=== PATIENT | female | born 1955 | race Caucasian/White ===

== ENCOUNTER 2020-09-22 14:04 | Outpatient (REF) | payer OTHER, SELFPAY ==
--- NOTE | ~2020-09-22 | MM_ITS ---
EXAMINATION: MM SCREENING DIGITAL BREAST TOMOSYNTHESIS, BILATERAL CLINICAL INFORMATION: Screening. Asymptomatic. The lifetime risk of breast cancer based on the Tyrer-Cuzick Model is 3%. COMPARISON: Mammography: 05/06/2019, 02/27/2018, 02/06/2017 TECHNIQUE: Digital breast tomosynthesis is performed in both the craniocaudal and mediolateral oblique views along with computer-aided detection (CAD). Synthesized 2D images are generated from the tomosynthesis. FINDINGS: There are scattered areas of fibroglandular density (ACR BI-RADS breast composition Category b). There are no significant masses, abnormal calcifications, or other abnormalities. Parenchymal pattern is similar to prior studies. There is a small stable nodule posterior central 11:00 left breast with coarse calcification likely degenerating fibroadenoma. Axillary nodes are stable. Skin contours are smooth. MM/MM tomosynthesis screening BI IMPRESSION: No mammographic evidence of malignancy. ASSESSMENT: BI-RADS 2: Benign RECOMMENDATION: Routine annual mammography screening. This patient's information was entered into a reminder system with a target due date for their next mammogram.
== END 2020-09-22 14:05 | disposition home or self-care (01) ==
LOC: HO.MAMMO 14:04
PROVIDERS: PCP Family Medicine; Visit Provider Family Medicine
DX: Z12.31 Encounter for screening mammogram for malignant neoplasm of breast (principal)
CPT/HCPCS: 77063; 77067

== ENCOUNTER 2020-10-22 14:07 | Outpatient (REF) | payer OTHER, SELFPAY ==
--- NOTE | ~2020-10-22 | MM_ITS ---
EXAMINATION: BONE DENSITOMETRY CLINICAL INDICATION: Screening for osteoporosis. COMPARISON: This is the patient's baseline examination. TECHNIQUE: Using a Puridify DXA System (software version: 13.1) manufactured by [employer], dual-energy x-ray absorptiometry was performed of the lumbar spine and left hip. The images are of good technical quality. Summary results are attached. FINDINGS: AP SPINE L1-L4: BMD 1.002 g/cm2, Z-score 0.2, T-score -1.5, osteopenia. LEFT FEMUR, NECK: BMD 0.803 g/cm2, Z-score -0.1, T-score -1.7, osteopenia. LEFT FEMUR, TOTAL: BMD 0.910 g/cm2, Z-score 0.5, T-score -0.8, normal. IDENTIFIED RISK FACTORS: Early menopause, secondary osteoporosis. HISTORY OF FRACTURE: None listed. MEDICATIONS: None listed. MM/XR DEXA axial skeleton IMPRESSION: 1. DIAGNOSIS: Osteopenia based on the lowest T-score value of -1.7 in the femoral neck applying World Health Organization criteria. 2. 10-YEAR FRACTURE RISK PREDICTION, FRAX: Major osteoporotic fracture (clinical spine, forearm, hip or shoulder) 5.3%. Hip fracture 0.7%. 3. Treatment Recommendations: NOF guidelines recommend consideration for treatment in postmenopausal women and men age 50 and older presenting with the following: -A hip or vertebral (clinical or morphometric) fracture. -T-score less than or equal to -2.5 at the femoral neck or spine after appropriate evaluation to exclude secondary causes. -Low bone mass at the hip or spine and a 10-year fracture probability by FRAX of greater than or equal to 3% for hip fracture or greater than or equal to 20% for major osteoporotic fracture based on the [place] adapted WHO algorithm. 4. Other Recommendations: All treatment decisions require clinical judgment and consideration of individual patient factors, including patient preferences, comorbidities, previous drug use, risk factors not captured in the FRAX model (e.g. frailty, falls, vitamin D deficiency, increased bone turnover, interval significant decline in bone density) and possible under or overestimation of fracture risk by FRAX. Additional medical evaluation for secondary cause of low bone mineral density may be appropriate. FUTURE SCAN RECOMMENDATION: People with diagnosed cases of osteoporosis or at high risk for fracture should have regular bone mineral density tests. For patients eligible for Medicare, routine testing is allowed once every 2 years. The testing frequency can be increased to one year for patients who have rapidly progressing disease, those who are receiving or discontinuing medical therapy to restore bone mass, or have additional risk factors.
== END 2020-10-22 14:08 | disposition home or self-care (01) ==
LOC: HO.MAMMO 14:07
PROVIDERS: PCP Family Medicine; Visit Provider Family Medicine
DX: M81.8 Other osteoporosis without current pathological fracture (principal); Z78.0 Asymptomatic menopausal state
CPT/HCPCS: 77080

== ENCOUNTER 2020-12-09 08:22 | Outpatient (REF) | payer OTHER, SELFPAY ==
--- NOTE | ~2020-12-09 | XR_ITS ---
EXAMINATION: XR HAND, LEFT CLINICAL INFORMATION: Left hand pain. COMPARISON: None. TECHNIQUE: PA, lateral, and oblique views of the left hand. FINDINGS: No acute fracture or dislocation. Mild joint space narrowing with tiny marginal osteophytes at the 1st, 3rd, and 4th metacarpophalangeal joints. No osseous erosion. No abnormal soft tissue calcification. 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
== END 2020-12-09 08:23 | disposition home or self-care (01) ==
LOC: HO.HOSX 08:22
PROVIDERS: Visit Provider Orthopaedic Surgery
DX: M79.642 Pain in left hand (principal); M72.0 Palmar fascial fibromatosis [Dupuytren]
CPT/HCPCS: 73130; 99202

== ENCOUNTER 2020-12-17 13:04 | Outpatient (REF) | payer OTHER, SELFPAY ==
--- NOTE | ~2020-12-17 | CT_ITS ---
EXAMINATION: CT HEAD WITHOUT CONTRAST CLINICAL INFORMATION: Head trauma with swelling, mass or lump. COMPARISON: Previous head CT July 2008. TECHNIQUE: Contiguous axial imaging was performed from the skull base to vertex without intravenous administration of contrast. This CT examination was performed using dose optimization techniques as appropriate, variously including the following: *Automated exposure control *Adjustment of mA and/or kV according to patient size (this includes techniques or standardized protocols for targeted exams where dose is matched to indication/reason for exam; i.e. extremities or head) *Use of iterative reconstruction technique DLP: 655 mGy-cm FINDINGS: There is no evidence of acute intracranial hemorrhage or territorial infarction. No abnormal mass effect or midline shift is seen. Barraza to white matter differentiation is well preserved. No extra-axial fluid collections are identified. The ventricles are normal in size. There is no abnormal attenuation within the brain parenchyma. No skull fracture is seen. There are degenerative changes of the right temporomandibular joint. Incidental note is made of a high left jugular bulb. The mastoid air cells and visualized portions of the paranasal sinuses are well aerated. CT/CT head/brain wo con IMPRESSION: No acute findings.
== END 2020-12-17 13:05 | disposition home or self-care (01) ==
LOC: HO.CT 13:04
PROVIDERS: Visit Provider Family Medicine
DX: R22.0 Localized swelling, mass and lump, head (principal); S09.90XD Unspecified injury of head, subsequent encounter; X58.XXXD Exposure to other specified factors, subsequent encounter
CPT/HCPCS: 70450

== ENCOUNTER 2021-09-27 13:46 | Outpatient (REF) | payer OTHER, SELFPAY ==
--- NOTE | ~2021-09-27 | MM_ITS ---
EXAMINATION: MM SCREENING DIGITAL BREAST TOMOSYNTHESIS, BILATERAL CLINICAL INFORMATION: Screening. Asymptomatic. The lifetime risk of breast cancer based on the Tyrer-Cuzick Model is 3.2%. COMPARISON: Mammography: September 22, 2020 and studies dating back to January 02, 2014 TECHNIQUE: Digital breast tomosynthesis is performed in both the craniocaudal and mediolateral oblique views along with computer-aided detection (CAD). Synthesized 2D images are generated from the tomosynthesis. FINDINGS: There are scattered areas of fibroglandular density (ACR BI-RADS breast composition Category b). There are no significant masses, abnormal calcifications, or other abnormalities. MM/MM tomosynthesis screening BI IMPRESSION: There are no significant changes from prior study. ASSESSMENT: BI-RADS 1: Negative RECOMMENDATION: Routine annual mammography screening. This patient's information was entered into a reminder system with a target due date for their next mammogram.
== END 2021-09-27 13:47 | disposition home or self-care (01) ==
LOC: HO.MAMMO 13:46
PROVIDERS: PCP Family Medicine; Visit Provider Family Medicine
DX: Z12.31 Encounter for screening mammogram for malignant neoplasm of breast (principal)
CPT/HCPCS: 77063; 77067

== ENCOUNTER 2022-01-07 12:46 | Outpatient (REF) | payer OTHER, SELFPAY ==
--- NOTE | 2022-01-07 | PFT_ITS ---
Forced vital capacity 76%, FEV1 91%. FEV1/FVC ratio is 91. [id number] 161% and MVV is 95%. Post bronchodilator therapy, there is no significant change. Total lung capacity 72%. Residual volume 64%. Diffusion capacity 115%. CONCLUSION: There is evidence of mild restrictive pulmonary disorder. No obstructive airway disorder. MD KRUPA Bernal/DONATOL / [phone]
--- NOTE | ~2022-01-07 | XR_ITS ---
EXAMINATION: XR CHEST CLINICAL INFORMATION: Wheezing. Essential hypertension. COMPARISON: Chest x-ray November 30, 2015 TECHNIQUE: 2 views of the chest were obtained. FINDINGS: Artifact silhouette is normal in size. The lungs are well aerated. There is no lobar consolidation. No pleural effusion or pneumothorax. Moderate degenerative changes of the spine. XR/XR chest 2V IMPRESSION: Stable examination demonstrating no acute pulmonary pathology.
== END 2022-01-07 12:47 | disposition home or self-care (01) ==
LOC: HO.RESP 12:46
PROVIDERS: PCP Family Medicine; Visit Provider Family Medicine
DX: J45.40 Moderate persistent asthma, uncomplicated (principal); I10 Essential (primary) hypertension
CPT/HCPCS: 71046; 94060; 94727; 94729

== ENCOUNTER 2022-03-03 12:29 | Outpatient (REF) | payer OTHER, SELFPAY ==
--- NOTE | ~2022-03-03 | XR_ITS ---
EXAMINATION: XR SKULL CLINICAL INFORMATION: Injury to head COMPARISON: None TECHNIQUE: 2 views of the skull were obtained. FINDINGS: There is no calvarial abnormality. The paranasal sinuses and mastoid air cells are well-aerated. There is no visible fracture or bony abnormality. XR/XR skull <4V IMPRESSION: Unremarkable skull exam.
== END 2022-03-03 12:30 | disposition home or self-care (01) ==
LOC: HO.XRAY 12:29
PROVIDERS: PCP Family Medicine; Visit Provider Student in an Organized Health Care Education/Training Program
DX: S09.90XA Unspecified injury of head, initial encounter (principal)
CPT/HCPCS: 70250

== ENCOUNTER 2022-10-20 13:40 | Outpatient (REF) | payer OTHER, SELFPAY ==
--- NOTE | ~2022-10-20 | MM_ITS ---
EXAMINATION: MM SCREENING DIGITAL BREAST TOMOSYNTHESIS, BILATERAL CLINICAL INFORMATION: Screening. Asymptomatic. The lifetime risk of breast cancer based on the Tyrer-Cuzick Model is 3%. COMPARISON: Mammography: This study is compared with the prior exams dating back to 2018. TECHNIQUE: Digital breast tomosynthesis is performed in both the craniocaudal and mediolateral oblique views along with computer-aided detection (CAD). Synthesized 2D images are generated from the tomosynthesis. FINDINGS: The breasts are extremely dense, which lowers the sensitivity of mammography (ACR BI-RADS breast composition Category d). There are no significant masses, abnormal calcifications, or other abnormalities. Few, benign-appearing, grouped, unchanged, coarse calcifications are present in the superior aspect of the left breast. MM/MM tomosynthesis screening BI IMPRESSION: No mammographic evidence of malignancy. ASSESSMENT: BI-RADS BI-RADS 2 - Benign Findings RECOMMENDATION: Routine annual mammography screening. 1 year F/U This patient's information was entered into a reminder system with a target due date for their next mammogram.
== END 2022-10-20 13:41 | disposition home or self-care (01) ==
LOC: HO.MAMMO 13:40
PROVIDERS: PCP Family Medicine; Visit Provider Family Medicine
DX: Z12.31 Encounter for screening mammogram for malignant neoplasm of breast (principal)
CPT/HCPCS: 77063; 77067

== ENCOUNTER → 2022-10-20 13:45 | Outpatient (BNV) | payer OTHER, SELFPAY | PROVIDERS: PCP Family Medicine; Visit Provider Radiology Diagnostic Radiology | DX: Z12.31 Encounter for screening mammogram for malignant neoplasm of breast (principal) | CPT/HCPCS: 77063; 77067 ==

== ENCOUNTER 2023-01-17 11:23 | Outpatient (REF) | payer OTHER, SELFPAY ==
--- NOTE | ~2023-01-17 | XR_ITS ---
EXAMINATION: XR FOOT, LEFT CLINICAL INFORMATION: Foot pain history of fracture COMPARISON: No prior imaging available at the time of dictation. TECHNIQUE: AP, lateral, and oblique views of the left foot. FINDINGS: No acute fracture or dislocation. Mild degenerative changes of the foot with degenerative spurring of the dorsal midfoot, plantar calcaneal spurring and Achilles tendon enthesopathy. Coarse calcifications along the course of the Achilles tendon may reflect sequelae of prior trauma. Small tibiotalar joint effusion. XR/XR foot LT min 3V IMPRESSION: 1. Mild degenerative changes of the foot. Coarse calcifications along the course of the Achilles tendon may reflect sequelae of prior trauma. 2. Small tibiotalar joint effusion.
--- NOTE | ~2023-01-17 | XR_ITS ---
EXAMINATION: XR KNEE, LEFT CLINICAL INFORMATION: Reason for Exam PAIN COMPARISON: Knee radiographs 05/14/2019 TECHNIQUE: 4 views of the knee FINDINGS: No acute fracture or dislocation. Mild degenerative changes of the knee with borderline loss of medial compartment joint space, spurring of the tibial spines, small medial compartment osteophytes and quadriceps tendon enthesopathy slightly progressed from prior. No joint effusion. Soft tissues are unremarkable. XR/XR knee LT 4V IMPRESSION: * No acute osseous abnormality. * Mild degenerative changes of the knee slightly progressed from prior.
[2023-01-17 13:21] LABS: Cholesterol 205 mg/dL (<200); HDL Cholesterol 50 mg/dL (>40); LDL Cholesterol Calculated 140 mg/dL (<100); Triglycerides 78 mg/dL (<150)
[2023-01-17 13:39] LABS: Alanine Aminotransferase 25 U/L (0-31); Albumin Level 4.1 g/dL (3.5-5.0); Alkaline Phosphatase 57 U/L (39-117); Anion Gap 15 (12-20); Aspartate Amino Transferase 25 U/L (5-31); Bilirubin Total 0.6 mg/dL (0.0-1.0); Blood Urea Nitrogen 16 mg/dL (9-16); Calcium 10.7 mg/dL (8.4-10.2); Carbon Dioxide 25 mmol/L (22-29); Chloride 105 mmol/L (96-108); Estimated Glomerular Filt Rate > 60; Glucose Random 127 mg/dL (60-115); Potassium 4.6 mmol/L (3.3-5.1); Sodium 140 mmol/L (135-145); Total Protein 7.9 g/dL (6.5-8.0)
[2023-01-17 13:42] LABS: TSH reflex Free T4 1.92 uIU/mL (0.32-4.0)
[2023-01-17 15:04] LABS: Estimated Average Glucose 123 mg/dL; Hemoglobin A1c % 5.9 % (<6.0)
[2023-01-17 17:39] LABS: Reflex LDLD? No
== END 2023-01-17 11:24 | disposition home or self-care (01) ==
LOC: HO.HHCL 11:23
PROVIDERS: Visit Provider Family Medicine
DX: E78.5 Hyperlipidemia, unspecified (principal); I10 Essential (primary) hypertension; R73.01 Impaired fasting glucose; Z13.89 Encounter for screening for other disorder
CPT/HCPCS: 36415; 73564; 73630; 80053; 80061; 83036; 84443

== ENCOUNTER 2023-03-06 18:23 | Outpatient (REF) | payer OTHER, SELFPAY ==
[2023-03-06 18:38] LABS: Appearance Urine Clear; Color Urine Yellow; Glucose Urine UA Negative (Negative); Leukocyte Esterase Urine Negative (Negative); Nitrite Urine Negative (Negative); PH 5.5 (5.0-9.0); UMIC TRIGGER UACC YES; Urine Blood Moderate (2+) (Negative); Urine Ketones Negative (Negative); Urine Protein Negative (Neg-Trace)
[2023-03-06 18:47] LABS: Bacteria Urine None Seen (None Seen); Squamous Epithelial Cell Urine 0-2 /HPF (0-2); WBC Urine 0-5 /HPF (0-5)
== END 2023-03-06 18:24 | disposition home or self-care (01) ==
LOC: HO.HHCLNP 18:23
PROVIDERS: Visit Provider Nurse Practitioner Primary Care
DX: R30.0 Dysuria (principal)
CPT/HCPCS: 81001

== ENCOUNTER 2023-10-24 13:59 | Outpatient (REF) | payer OTHER, SELFPAY ==
--- NOTE | ~2023-10-24 | MM_ITS ---
EXAMINATION: MM SCREENING DIGITAL BREAST TOMOSYNTHESIS, BILATERAL CLINICAL INFORMATION: Screening. Asymptomatic. COMPARISON: Mammography: This study is compared with prior exams dating back to 2019. TECHNIQUE: Digital breast tomosynthesis is performed in both the craniocaudal and mediolateral oblique views along with computer-aided detection (CAD). Synthesized 2D images are generated from the tomosynthesis. FINDINGS: There are scattered areas of fibroglandular density (ACR BI-RADS breast composition Category b). There are no significant masses, abnormal calcifications, or other abnormalities. There are unchanged, coarse, benign calcifications in the superior aspect of the left breast. MM/MM tomosynthesis screening BI IMPRESSION: No mammographic evidence of malignancy. ASSESSMENT: BI-RADS BI-RADS 2 - Benign Findings RECOMMENDATION: Routine annual mammography screening. 1 year F/U This examination should not preclude the clinical evaluation of a suspicious palpable abnormality. This patient's information was entered into a reminder system with a target due date for their next mammogram.
== END 2023-10-24 14:00 | disposition home or self-care (01) ==
LOC: HO.MAMMO 13:59
PROVIDERS: PCP Family Medicine; Visit Provider Family Medicine
DX: Z12.31 Encounter for screening mammogram for malignant neoplasm of breast (principal)
CPT/HCPCS: 77063; 77067

== ENCOUNTER → 2023-10-24 14:00 | Outpatient (BNV) | payer OTHER, SELFPAY | PROVIDERS: PCP Family Medicine; Visit Provider Radiology Diagnostic Radiology | DX: Z12.31 Encounter for screening mammogram for malignant neoplasm of breast (principal) | CPT/HCPCS: 77063; 77067 ==

== ENCOUNTER 2024-01-01 11:00 | Day surgery (SDC) | payer OTHER, SELFPAY ==
[2023-12-28 14:42] VITALS: BMI 27.9
[2024-01-01] VITALS (8 sets, daily range): BP systolic 71–143; BP diastolic 38–72; PULSE 66–79; RESP 16–20; TEMP 36.6–36.9; O2SAT 96–98; BMI 27.5
--- OUTSIDE RECORDS SUMMARY | 2024-01-01 11:02 | XMS_ITS ---
Author Organization [facility] Address [address] [place] [address] Care Team Providers Care Maintenance Controller Name Role Phone Rush SR, Beatriz Primary Care Provider Eloy Gilbert Unavailable [phone] REASON FOR VISIT screening,hx polyps Encounters Encounter Location Date Provider Diagnosis [facility] Outpatient [address] [place] [id number] 01/01/2024 Eloy Gomez PLAN OF TREATMENT Next Appt Details Provider Name:Eloy Gomez , 01/01/2024 11:30:00 AM, [address] [place] [address], [phone],
--- OUTSIDE RECORDS SUMMARY | 2024-01-01 11:03 | XMS_ITS ---
Author Organization [facility] Address [address] [place] [id number] Care Team Providers Care Ent Consultant Name Role Phone Rush SR, Beatriz Primary Care Provider Eloy Gilbert [phone] ALLERGIES Allergen (clinical drug ingredient) Drug/Non Drug Allergy documented on EMR Reaction Allergy Type Onset Date Status Motrin Unknown Drug Allergy Active ibuprofen Ibuprofen Unknown Drug Allergy Active acetaminophen / aspirin / caffeine Excedrin Migraine Unknown Drug Allergy Active aspirin Aspirin Unknown Drug Allergy Active ibuprofen Advil Unknown Drug Allergy Active Penicillin Unknown Drug Allergy Active Mylanta Unknown Drug Allergy Active REASON FOR VISIT Patient presents today for a recall colonoscopy MEDICATIONS Medication SIG (Take, Route, Frequency, Duration) Notes Start Date End Date Status Dulcolax (colon prep) 5 MG take at 3:00 p.m and 7:00p.m. Orally two tablets twice a day for one day for 1 day 02/22/2017 Active traZODone HCl 150 MG 1 tablet at bedtime Orally Once a day Active hydroCHLOROthiazide 25 MG 1 tablet Orall y Once a day Active Lisinopril 10 MG 1 tablet Orally Once a day Active clonazePAM 0.5 MG 1 tablet Orally PRN Active Pravastatin Sodium 20 MG 1 tablet Orally Once a day Active MiraLax (colon prep) 17 GM/SCOOP 1 238gm bottle mixed with gatorade or crystal light Orally begin at 5:00 p.m. the day before the procedure for 1 day 02/22/2017 Active Omeprazole 20 MG 1 capsule Orally BID Active VITAL SIGNS BMI 27.85 kg/m2 09/20/2023 Blood pressure systolic 000 mm Hg 09/20/19 24 Blood pressure diastolic 00 mm Hg 024 Height 57.5 in 09/20/2023 Temperature 97.8 degrees Fahrenheit 09/20/19 24 Weight 131 lbs 09/20/2023 Encounters Encounter Location Date Provider Diagnosis [facility] [address] [place] [address] 09/20/2023 Eloy Gomez Gastroesophageal ref lux disease without esophagitis K21.9 ; History of adenomatous polyp of colon Z86.010 and Encounter for screening for malignant neoplasm of colon Z12.11 ASSESSMENTS Encounter Date Diagnosis Assessment Notes Treatment Notes Treatment Clinical Notes 09/20/2023 Gastroesophageal ref lux disease without esophagitis (ICD-10 - K21.9) 09/20/2023 History of adenomato us polyp of colon (ICD-10 - Z86.010) 09/20/2023 Encounter for screen ing for malignant neoplasm of colon (ICD-10 - Z12.11) PLAN OF TREATMENT Medication Medication Name Sig Start Date Stop Date Notes Dulcolax (colon prep) 5 MG take at 3:00 p.m and 7:00p.m. Orally two tablets twice a day for one day for 1 day 02/22/2017 MiraLax (colon prep) 17 GM/SCOOP 1 238gm bottle mixed with gatorade or crystal light Orally begin at 5:00 p.m. the day before the procedure for 1 day 02/22/2017 Omeprazole 20 MG 1 capsule Orally BID Future Test Test Name Order Date COLONOSCOPY 09/20/2023 Next Appt Details Follow Up: prn, Reason: Provider Name:Eloy Gomez , 01/01/2024 11:30:00 AM, [address] [place] [address] , [place], [place], [phone], Progress Notes * Examination Category Sub-Category Detail Notes General Examination GENERAL APPEARANCE: pleasant , well nourished, well developed, in no acute distress EYES: sclera non-icteric NECK/THYROID: no cervical lymphade nopathy, neck supple HEART: S1, S2 normal LUNGS: clear to auscultatio n bilaterally ABDOMEN: normal bowel sounds, no guarding or rigidity, no hepatosplenomegaly, no masses palpable, soft, nontender, nondistended. NEUROLOGIC: alert and oriented SKIN: nonjaundiced, no spi lacy angiomata. EXTREMITIES: no edema ORAL CAVITY: mucosa moist
--- OUTSIDE RECORDS SUMMARY | 2024-01-01 11:03 | XMS_ITS | Patient Health Record ---
Author Organization [facility] Address [address] [place] [id number] Care Team Providers Care Kaitara Taraka Name Role Phone Rush SR, Beatriz Primary Care Provider Eloy Gilbert [phone] ALLERGIES Allergen (clinical drug ingredient) Drug/Non Drug Allergy documented on EMR Reaction Allergy Type Onset Date Status Motrin Unknown Drug Allergy Active ibuprofen Ibuprofen Unknown Drug Allergy Active acetaminophen / aspirin / caffeine Excedrin Migraine Unknown Drug Allergy Active aspirin Aspirin Unknown Drug Allergy Active ibuprofen Advil Unknown Drug Allergy Active Penicillin Unknown Drug Allergy Active Mylanta Unknown Drug Allergy Active REASON FOR REFERRAL No Information MEDICATIONS Medication SIG (Take, Route, Frequency, Duration) Notes Start Date End Date Status clonazePAM 0.5 MG 1 tablet Orally PRN Active Dulcolax (colon prep) 5 MG take at 3:00 p.m and 7:00p.m. Orally two tablets twice a day for one day for 1 day 02/22/2017 Active Pravastatin Sodium 20 MG 1 tablet Orally Once a day Active traZODone HCl 150 MG 1 tablet at bedtime Orally Once a day Active MiraLax (colon prep) 17 GM/SCOOP 1 238gm bottle mixed with gatorade or crystal light Orally begin at 5:00 p.m. the day before the procedure for 1 day 02/22/2017 Active hydroCHLOROthiazide 25 MG 1 tablet Orall y Once a day Active Omeprazole 20 MG 1 capsule Orally BID Active Lisinopril 10 MG 1 tablet Orally Once a day Active IMMUNIZATIONS Vaccine Route Administration Date Status Comme nts Influenza Unknown 02/14/2023 Administered SOCIAL HISTORY Sex Assigned At : Social History Observation Description Sex Assigned At Unknown PROBLEMS Problem Type ICD Code Onset Dates Problem Status W/U Status Risk SNOMED Code Notes Problem Encounter for screening for malignant neoplasm of colon (Z12.11) Active confirmed 319671512 Problem History of adenomatous polyp of colon (Z86.010) Active confirmed 617841393 Problem Gastroesophageal reflux disease without esophagitis (K21.9) Active confirmed [id number] VITAL SIGNS Temperature 97.8 degrees Fahrenheit 09/20/2023 Blood pressure diastolic 00 mm Hg 09/20/2023 Height 57.5 in 09/20/2023 Blood pressure systolic 000 mm Hg 09/20/2023 Weight 131 lbs 09/20/2023 BMI 27.85 kg/m2 09/20/2023 Encounters Encounter Location Date Provider Diagnosis [facility] [address] [place] [id number] 01/01/2024 Eloy Gomez [facility] [address] [place] [address] 09/20/2023 Eloy Gomez Gastroesophageal ref lux disease without esophagitis K21.9 ; History of adenomatous polyp of colon Z86.010 and Encounter for screening for malignant neoplasm of colon Z12.11 ASSESSMENTS Encounter Date Diagnosis Assessment Notes Treatment Notes Treatment Clinical Notes 09/20/2023 History of adenomato us polyp of colon (ICD-10 - Z86.010) 09/20/2023 Gastroesophageal ref lux disease without esophagitis (ICD-10 - K21.9) 09/20/2023 Encounter for screen ing for malignant neoplasm of colon (ICD-10 - Z12.11) PLAN OF TREATMENT Future Test Test Name Order Date UPPER GI ENDOSCOPY 11/08/2013 COLONOSCOPY 02/22/2017 COLONOSCOPY 09/20/2023 Next Appt Details Provider Name:Eloy Gomez , 01/01/2024 11:30:00 AM, [address] [place] [address] , [place], [place], [phone], Insurance Providers Payer Name Payer Address Payer Phone Subscriber Number Group Number Insured Name Patient Relationship to Insured Coverage Start Date Coverage End Date [facility] [address] Attn Claims GREGORY Herr[place] [id number] RAMANDEEP THERESA Self - patient is the insured MEDICAL (GENERAL) HISTORY Medical History History ICD Code Hypertension Denies NC,DM,CVA,Lung disease,renal dise ase Anxiety Hyperlipidemia Reported gastritis--EGD in [place] Colonoscopy in 09/2011-1 small tubular ad enoma removed GERD-EGD in 04/2014-small HH--no Stanton' s, no esophagitis, no H.pylori 05/2017 Screening colonoscopy with a smal l tubular adenoma removed Surgical History Surgery Date(Month/Year) shoulder surgery BTL
[2024-01-01] MEDS: Lactated Ringers 1,000 ML 100 ML IVCONT (11:37)
--- NOTE | 2024-01-01 12:50 | P.CONAN_ITS ---
Documented by User: Diana Martinez NP 12/29/23 10:31 HPI - Anesthesia Eval Consult details Narrative: 68yo F for Colonoscopy PMFSH Active Problems Active Problems: All Active Problems Dupuytren's disease of palm (Acute) Past Medical History Medical History (Updated 12/28/23 @ 14:45 by Lakshmi Bhatti, LISA) GERD (gastroesophageal reflux disease) Hyperlipemia Anxiety HTN (hypertension) Surgical History Surgical History (Updated 12/28/23 @ 14:45 by Lakshmi Bhatti, RN) Hx of tubal ligation Hx of shoulder surgery History of esophagogastroduodenoscopy (EGD) H/O colonoscopy Social History Social History (Updated 12/28/23 @ 14:45 by Lakshmi Bhatti RN) Patient Tobacco Use Status: Never used Tobacco Have you been hit, kicked, punched, or otherwise hurt by someone within the past year? If so, by whom?: No Are you DNR?: No Advance Directives: No Advance Directives Information Provided: Yes Current occupational status: disabled Current occupation: rt hand Meds Allergies Allergy/AdvReac Type Severity Reaction Status Date / Time aspirin [Aspirin] Allergy Mild RASH,SWELLI Verified 12/09/20 09:19 NG ibuprofen [From Motrin] Allergy Mild RASH,SWELLI Verified 12/09/20 09:19 NG Penicillins Allergy Mild RASH,SWELLI Verified 12/09/20 09:19 NG acetaminophen Allergy Unknown RASH,SWELLI Verified 12/09/20 09:19 [From EXCEDRIN TENSION NG HEADACHE] aluminum hydroxide Allergy Unknown RASH,SWELLI Verified 12/09/20 09:19 [From MYLANTA] NG caffeine Allergy Unknown RASH,SWELLI Verified 12/09/20 09:19 [From EXCEDRIN TENSION NG HEADACHE] calcium carbonate Allergy Unknown RASH,SWELLI Verified 12/09/20 09:19 [From MYLANTA] NG magnesium [From MYLANTA] Allergy Unknown RASH,SWELLI Verified 12/09/20 09:19 NG magnesium hydroxide Allergy Unknown RASH,SWELLI Verified 12/09/20 09:19 [From MYLANTA] NG simethicone [From MYLANTA] Allergy Unknown RASH,SWELLI Verified 12/09/20 09:19 NG Home Medications ?Medication ?Instructions ?Recorded ?Confirmed ?Last Taken ?Type beclomethasone dipropionate 40 1 inh inhalation BID 12/09/20 Unknown History mcg/actuation HFA breath activated aerosol (Qvar RediHaler) clonazepam 0.5 mg tablet 0.25 mg PO BID 12/09/20 12/28/23 Unknown History fluticasone propionate 44 1 puff inhalation BID 12/09/20 Unknown History mcg/actuation HFA aerosol inhaler hydrochlorothiazide 12.5 mg capsule 12.5 mg PO DAILY 12/09/20 12/28/23 01/01/24 History lisinopril 2.5 mg tablet 2.5 mg PO DAILY 12/09/20 12/28/23 01/01/24 History loratadine 5 mg/5 mL oral solution 5 ml PO BID 12/09/20 Unknown History omeprazole 10 mg capsule,delayed 10 mg PO DAILY 12/09/20 12/28/23 Unknown History release pravastatin 10 mg tablet 10 mg PO BEDTIME 12/09/20 12/28/23 Unknown History trazodone 50 mg tablet 25 mg PO BEDTIME PRN Insomnia 12/09/20 12/28/23 Unknown History Exam Height,Weight and Vital Signs: Height 4 ft 9.5 in Weight 59.421 kg Assessment and Plan Assessment Anesthesia Assessment: Chart Reviewed Documented by User: Kathy Cordon DO 01/01/24 12:52 [facility] Past Medical History Medical History (Updated 12/28/23 @ 14:45 by Lakshmi Bhatti RN) GERD (gastroesophageal reflux disease) Hyperlipemia Anxiety HTN (hypertension) Family History Family history of problems with anesthesia: No Surgical History Surgical History (Updated 12/28/23 @ 14:45 by Lakshmi Bhatti RN) Hx of tubal ligation Hx of shoulder surgery History of esophagogastroduodenoscopy (EGD) H/O colonoscopy History of Problems with Anesthesia: No Social History Social History (Updated 12/28/23 @ 14:45 by Lakshmi Urgo, RN) Patient Tobacco Use Status: Never used Tobacco Have you been hit, kicked, punched, or otherwise hurt by someone within the past year? If so, by whom?: No Are you DNR?: No Advance Directives: No Advance Directives Information Provided: Yes Current occupational status: disabled Current occupation: rt hand Meds Allergies Allergy/AdvReac Type Severity Reaction Status Date / Time aspirin [Aspirin] Allergy Mild RASH,SWELLI Verified 12/09/20 09:19 NG ibuprofen [From Motrin] Allergy Mild RASH,SWELLI Verified 12/09/20 09:19 NG Penicillins Allergy Mild RASH,SWELLI Verified 12/09/20 09:19 NG acetaminophen Allergy Unknown RASH,SWELLI Verified 12/09/20 09:19 [From EXCEDRIN TENSION NG HEADACHE] aluminum hydroxide Allergy Unknown RASH,SWELLI Verified 12/09/20 09:19 [From MYLANTA] NG caffeine Allergy Unknown RASH,SWELLI Verified 12/09/20 09:19 [From EXCEDRIN TENSION NG HEADACHE] calcium carbonate Allergy Unknown RASH,SWELLI Verified 12/09/20 09:19 [From MYLANTA] NG magnesium [From MYLANTA] Allergy Unknown RASH,SWELLI Verified 12/09/20 09:19 NG magnesium hydroxide Allergy Unknown RASH,SWELLI Verified 12/09/20 09:19 [From MYLANTA] NG simethicone [From MYLANTA] Allergy Unknown RASH,SWELLI Verified 12/09/20 09:19 NG Home Medications ?Medication ?Instructions ?Recorded ?Confirmed ?Last Taken ?Type beclomethasone dipropionate 40 1 inh inhalation BID 12/09/20 Unknown History mcg/actuation HFA breath activated aerosol (Qvar RediHaler) clonazepam 0.5 mg tablet 0.25 mg PO BID 12/09/20 12/28/23 Unknown History fluticasone propionate 44 1 puff inhalation BID 12/09/20 Unknown History mcg/actuation HFA aerosol inhaler hydrochlorothiazide 12.5 mg capsule 12.5 mg PO DAILY 12/09/20 12/28/23 01/01/24 History lisinopril 2.5 mg tablet 2.5 mg PO DAILY 12/09/20 12/28/23 01/01/24 History loratadine 5 mg/5 mL oral solution 5 ml PO BID 12/09/20 Unknown History omeprazole 10 mg capsule,delayed 10 mg PO DAILY 12/09/20 12/28/23 Unknown History release pravastatin 10 mg tablet 10 mg PO BEDTIME 12/09/20 12/28/23 Unknown History trazodone 50 mg tablet 25 mg PO BEDTIME PRN Insomnia 12/09/20 12/28/23 Unknown History Exam Exam Date and Time: 01/01/24 1250 Height,Weight and Vital Signs: Height 4 ft 9.5 in Weight 59.421 kg Vital Signs Temperature 98.5 F 01/01/24 11:29 Pulse Rate 79 01/01/24 11:29 Respiratory Rate 20 01/01/24 11:29 Blood Pressure 143/72 H 01/01/24 11:29 Pulse Oximetry 96 01/01/24 11:29 Oxygen Delivery Method Room Air 01/01/24 11:29 Temperature 98.5 F 01/01/24 11:29 Pulse Rate 79 01/01/24 11:29 Respiratory Rate 20 01/01/24 11:29 Blood Pressure 143/72 H 01/01/24 11:29 Pulse Oximetry 96 01/01/24 11:29 Oxygen Delivery Method Room Air 01/01/24 11:29 Airway Mallampati Class: I TM Dist: >3cm Neck ROM: Full Loose/Missing/Broken Teeth: No (patient denies any loose or broken teeth) Heart: S1S2 Lungs: CTAB Assessment and Plan Assessment Anesthesia Assessment: Anesthesia Plan Discussed and Chart Reviewed Final Anesthetic Review Family History of Problems with Anesthesia: No History of Problems with Anesthesia: No NPO: Yes ASA Class: II Final Preanesthetic Review: No Changes in Pt Med Stat, Meds/Allgs Chart Reviewed, Consent Obtained/Reviewed (educational therapy teacher at bedside for tra nslation) and Anes Risks/Benef Reviewed Patient Risk: Low Procedure Risk: Low Anesthetic Plan Anesthetic Plan: MAC: and Agree w/ Assess. and Plan Disposition: Standard PACU
--- NOTE | 2024-01-01 14:05 | P.BOP_ITS ---
Brief Operative Note Date of Service: 01/01/24 Pre-op diagnosis: Screening Post-op diagnosis: other (Diverticulosis) Procedure: Colonoscopy to the cecum and TI Surgeon: Eloy Gomez MD Anesthesia: MAC Was an Radiographer Angiogram used for this Procedure?: No Estimated blood loss (mL): 0 Pathology: none sent Condition: stable Disposition: PACU
--- NOTE | 2024-01-01 14:28 | OP_ITS ---
DATE OF SERVICE: 01/01/2024 SURGEON: Eloy Gomez MD INDICATIONS: The patient presents for evaluation of colorectal cancer screening and personal history of tubular adenoma of the colon. Full consent has been obtained from her for this, including risks of bleeding and perforation. PREOPERATIVE DIAGNOSIS: Colorectal cancer screening and personal history of tubular adenoma of the colon. POSTOPERATIVE DIAGNOSIS: PROCEDURE PERFORMED: Colonoscopy to cecum and terminal ileum. ESTIMATED BLOOD LOSS: COMPLICATIONS: ANESTHESIA: Monitored anesthesia care. ASSISTANTS: SPECIMENS: POSTOPERATIVE DIAGNOSES: Colorectal cancer screening and personal history of tubular adenoma of the colon, diverticulosis, and internal hemorrhoids. DESCRIPTION OF PROCEDURE: The patient was placed in the left lateral decubitus position. The digital rectal exam revealed no abnormalities. The Olympus video pediatric colonoscope was entered into the rectum and advanced easily to the cecum. Once in the cecum, I did identify normal-appearing cecal pouch with appendiceal orifice and a normal-appearing ileocecal valve. The terminal ileum was cannulated and appeared normal. The scope was withdrawn back in the colon. The entire cecum and ileocecal valve appeared normal. Scope was slowly withdrawn assessing all mucosal surfaces carefully. Preparation was excellent. I did not visualize any sign of polyps, colitis, nor angiodysplasia. There was a mild amount of sigmoid diverticulosis. In the rectum, scope was retroflexed visualizing some internal hemorrhoids but no other pathology. The rectal mucosa appeared normal. The scope was straightened and withdrawn from the patient. She tolerated the procedure well and was returned to the recovery area in stable condition. IMPRESSION: 1. Diverticulosis. 2. Internal hemorrhoids. PLAN: Given her previous history, I would recommend a followup coloscopy in 5 years. She will otherwise see me on a p.r.n. basis. MD FANY Fleming/JOEL / [id number]
== END 2024-01-01 15:19 | disposition home or self-care (01) ==
PROVIDERS: PCP Family Medicine; Visit Provider Internal Medicine
PROC: 0DJD8ZZ Inspection of Lower Intestinal Tract, Via Natural or Artificial Opening Endoscopic (ICD-10-PCS; CPT 45378; principal; 2024-01-01 11:30)
DX: Z12.11 Encounter for screening for malignant neoplasm of colon (principal); Z86.010 Personal history of colon polyps; K57.30 Diverticulosis of large intestine without perforation or abscess without bleeding; K64.8 Other hemorrhoids; K21.9 Gastro-esophageal reflux disease without esophagitis; I10 Essential (primary) hypertension; E78.5 Hyperlipidemia, unspecified; F41.9 Anxiety disorder, unspecified; Z79.899 Other long term (current) drug therapy; Z98.890 Other specified postprocedural states; Z88.0 Allergy status to penicillin; Z88.6 Allergy status to analgesic agent; Z88.8 Allergy status to other drugs, medicaments and biological substances
CPT/HCPCS: G0105; J2704

== ENCOUNTER 2024-01-25 16:20 | Outpatient (REF) | payer OTHER, SELFPAY ==
[2024-01-25 17:48] LABS: Estimated Average Glucose 120 mg/dL; Hemoglobin A1C 143.3844 umol/L; Hemoglobin A1c % 5.8 % (<6.0); Total Hemoglobin (HGBA1C) 3585.0491 umol/L
[2024-01-25 17:59] LABS: Alanine Aminotransferase 27 U/L (0-31); Albumin Level 4.2 g/dL (3.5-5.0); Alkaline Phosphatase 66 U/L (39-117); Anion Gap 13 (12-20); Aspartate Amino Transferase 22 U/L (5-31); Bilirubin Total 0.7 mg/dL (0.0-1.0); Blood Urea Nitrogen 17 mg/dL (9-16); Calcium 10.6 mg/dL (8.4-10.2); Carbon Dioxide 28 mmol/L (22-29); Chloride 105 mmol/L (96-108); Cholesterol 183 mg/dL (<200); Estimated Glomerular Filt Rate > 60; Glucose Random 114 mg/dL (60-115); HDL Cholesterol 50 mg/dL (>40); LDL Cholesterol Calculated 121 mg/dL (<100); Potassium 3.6 mmol/L (3.3-5.1); Sodium 142 mmol/L (135-145); Total Protein 7.8 g/dL (6.5-8.0); Triglycerides 64 mg/dL (<150)
[2024-01-25 18:13] LABS: TSH reflex Free T4 1.11 uIU/mL (0.32-4.0)
[2024-01-25 18:46] LABS: Reflex LDLD? No
== END 2024-01-25 16:21 | disposition home or self-care (01) ==
LOC: HO.HHCL 16:20
PROVIDERS: Visit Provider Family Medicine
DX: I10 Essential (primary) hypertension (principal); E78.5 Hyperlipidemia, unspecified; R73.01 Impaired fasting glucose
CPT/HCPCS: 36415; 80053; 80061; 83036; 84443

== ENCOUNTER 2024-04-26 13:02 | Outpatient (REF) | payer OTHER, SELFPAY ==
--- OUTSIDE RECORDS SUMMARY | 2024-04-26 14:35 | XMS_ITS ---
Author Organization [facility] Address [address] [place] [id number] Care Team Providers Care Abnormal Psychology Teacher Name Role Phone Rush SR, Beatriz Primary Care Provider Eloy Gilbert [phone] ALLERGIES Allergen (clinical drug ingredient) Drug/Non Drug [...] 09/20/2023 Encounters Encounter Location Date Provider Diagnosis [facility] [address] [place] [address] 09/20/2023 Eloy Gomez Gastroesophageal ref lux disease [...] Next Appt Details Follow Up: prn, Reason: Progress Notes * Examination Category Sub-Category Detail [...]
--- OUTSIDE RECORDS SUMMARY | 2024-04-26 14:35 | XMS_ITS ---
Author Organization [facility] Address [address] [place] [address] Care Team Providers Care Auto Cleaner Name Role Phone Rush SR, Beatriz Primary Care Provider Eloy Gilbert Unavailable [phone] REASON FOR VISIT screening,hx polyps PROBLEMS Problem Type ICD Code Onset Dates Problem Status W/U Status Risk SNOMED Code Notes Problem Personal history of colonic polyps (Z86.010) Active confirmed History of polyp of colon (situation) (897620636) Problem Diverticulosis of large intestine without perforation or abscess without bleeding (K57.30) Active confirmed Diverticul ar disease of colon (772382959) Encounters Encounter Location Date Provider Diagnosis [facility] [place] [address] [place], [place] [id number] 01/01/2024 Eloy Gomez Colon cancer scree vickie Z12.11 ; Personal history of colonic polyps Z86.010 ; Diverticulosis of large intestine without perforation or abscess without bleeding K57.30 and Other hemorrhoids K64.8 ASSESSMENTS Encounter Date Diagnosis Assessment Notes Treatment Notes Treatment Clinical Notes 01/01/2024 Colon cancer screening (ICD-10 - Z12.11) 01/01/2024 Personal history of colonic polyps (ICD-10 - Z86.010) 01/01/2024 Diverticulosis of large intestine without perforation or abscess without bleeding (ICD-10 - K57.30) 01/01/2024 Other hemorrhoids (ICD-10 - K64.8) PLAN OF TREATMENT No Information
--- OUTSIDE RECORDS SUMMARY | 2024-04-26 14:36 | XMS_ITS | Patient Health Record ---
Author Organization [facility] Address [address] [place] [id number] Care Team Providers Care Pipe Foreman Name Role Phone Rush SR, Beatriz Primary Care Provider Eloy Gilbert [phone] ALLERGIES Allergen (clinical drug ingredient) Drug/Non Drug [...] malignant neoplasm of colon (Z12.11) Active confirmed 707838393 Problem History of adenomatous polyp of colon (Z86.010) Active confirmed 096470705 Problem Personal history of colonic polyps (Z86.010) Active confirmed History of polyp of colon (situation) (611441179) Problem Diverticulosis of large intestine without perforation or abscess without bleeding (K57.30) Active confirmed Diverticul ar disease of colon (700766183) Problem Gastroesophageal reflux disease without esophagitis (K21.9) Active confirmed 669646554 VITAL SIGNS Temperature 97.8 degrees Fahrenheit 09/20/2023 Blood pressure diastolic 00 mm Hg 09/20/2023 Height 57.5 in 09/20/2023 Blood pressure systolic 000 mm Hg 09/20/2023 Weight 131 lbs 09/20/2023 BMI 27.85 kg/m2 09/20/2023 Encounters Encounter Location Date Provider Diagnosis [facility] [place] Out[facility] [address] [place], [place] [phone] 01/01/2024 Eloy Gomez Colon cancer screeni ng Z12.11 ; Personal history of colonic polyps Z86.010 ; Diverticulosis of large intestine without perforation or abscess without bleeding K57.30 and Other hemorrhoids K64.8 [facility] [address] [place] [address] 09/20/2023 Eloy Gomez Gastroesophageal ref lux disease without esophagitis K21.9 ; History of adenomatous polyp of colon Z86.010 and Encounter for screening for malignant neoplasm of colon Z12.11 ASSESSMENTS Encounter Date Diagnosis Assessment Notes Treatment Notes Treatment Clinical Notes 01/01/2024 Colon cancer screeni ng (ICD-10 - Z12.11) 01/01/2024 Personal history of colonic polyps (ICD-10 - Z86.010) 09/20/2023 History of adenomato us polyp of colon (ICD-10 - Z86.010) 09/20/2023 Gastroesophageal ref lux disease without esophagitis (ICD-10 - K21.9) 01/01/2024 Diverticulosis of la rge intestine without perforation or abscess without bleeding (ICD-10 - K57.30) 09/20/2023 Encounter for screen ing for malignant neoplasm of colon (ICD-10 - Z12.11) 01/01/2024 Other hemorrhoids (ICD-10 - K64.8) PLAN OF TREATMENT Future Test Test Name Order Date UPPER GI ENDOSCOPY 11/08/2013 COLONOSCOPY 02/22/2017 COLONOSCOPY 09/20/2023 Insurance Providers Payer Name Payer Address Payer Phone Subscriber Number Group Number Insured Name Patient Relationship to Insured Coverage Start Date Coverage End Date [facility] [address] Attn Claims GREGORY Herron [id number] THERESA SABILLON Self - patient is the insured MEDICAL (GENERAL) HISTORY Medical History History ICD Code Hypertension Denies [place],DM,CVA,Lung disease,renal dise ase Anxiety Hyperlipidemia Reported gastritis--EGD in [place] Colonoscopy in 09/2011-1 small tubular ad enoma removed GERD-EGD in 04/2014-small HH--no Stanton' s, no esophagitis, no H.pylori 05/2017 Screening colonoscopy with a smal l tubular adenoma removed Surgical History Surgery Date(Month/Year) shoulder surgery BTL
--- OUTSIDE RECORDS SUMMARY | 2024-04-26 14:36 | XMS_ITS | Data Portability ---
Author Organization [employer] [facility] Address [address] [place] [phone] Assessment No assessment recorded. Plan of Treatment Reminders Order Date Submit Date Provider Last Modified By Organization Details Last Modified Time Details Appointments None record ed. Lab None record ed. Referral None record ed. Procedures None record ed. Surgeries None record ed. Imaging None record ed. Medication Orders None record ed. Patient TargetsNo targets recorded. Patient InstructionsNo instructions recorded. Reason for Referral None Reported. Medical Equipment None Reported. Allergies Allergen ID Allergen Name Allergen Category Reaction Reaction Severity Criticality Documentation Date Start Date Code Code System Note Provider Name and Address Organization Details Recorded Time 8067 aspirin medicatio n Not available Not available Not available 02/20/2024 1191 RxNorm Not Available [facility] - production 4 03:41:46 8068 ibuprofen medicatio n Not available Not available Not available 02/20/2024 5640 RxNorm Not Available [facility] - production 4 03:41:46 8069 Medicinal product containin g penicilli n and acting as antibacte rial agent (product) medicatio n Not available Not available Not available 02/20/2024 49495 05 SNOMED Not Available [facility] - production 4 03:41:46 Medications Name Sig Start Date Stop Date Status Note LastModified by Organization Details LastModified Time betamethasone valerate 0.1 % topical ointment APPLY TOPICALLY IN A THIN LAYER TO THE AFFECTED AREAS DAILY FOR ONE WEEK active Not Available Not Available No t Available clonazepam 0.5 mg tablet TOME ELSA TABLETA VIA ORAL CADA NEDRA AL ACOSTARSE active Not Available Not Available No t Available acetaminophen ER 650 mg tablet,extend ed release TAKE 1 TABLET BY MOUTH EVERY 8 HOURS NEEDED FOR MODERATE PAIN active Not Available Not Available No t Available trazodone 150 mg tablet TOME ELSA TABLETA VIA ORAL CADA NEDRA AL ACOSTARSE active Not Available Not Available No t Available omeprazole 20 mg capsule,delay ed release TOME ELSA CAPSULA VIA ORAL DOS VECES AL NEDRA ANTES DE LAS COMIDAS active Not Available Not Available No t Available pravastatin 20 mg tablet TOME ELSA TABLETA VIA ORAL AL ACOSTARSE active Not Available Not Available No t Available hydrochloroth iazide 25 mg tablet TOME ELSA TABLETA VIA ORAL CADA NEDRA active Not Available Not Available No t Available lisinopril 2.5 mg tablet TOME ELSA TABLETA VIA ORAL CADA NEDRA active Not Available Not Available No t Available cholecalcifer ol (vitamin D3) 25 mcg (1,000 unit) capsule TOME ELSA CAPSULA VIA ORAL CADA NEDRA active Not Available Not Available No t Available Allergy Relief (loratadine) 10 mg tablet TOME ELSA TABLETA VIA ORAL CADA NEDRA active Not Available Not Available No t Available Flovent HFA 110 mcg/actuation aerosol inhaler INHALE 2 PUFFS BY MOUTH TWICE DAILY active Not Available Not Available No t Available Vitals Date Recorded Heart rate Body temperature Respiratory rate Oxygen saturation Oxygen saturation in Arterial blood by Pulse oximetry Systolic blood pressure Diastolic blood pressure Provider Name and Address Organization Details Last Updated DateTime 3 81 /min 97.4 [degF] 16 /min 97 % 97 % 162 mm[Hg] 84 mm[Hg] Not Available [facility] production 3 19:14:57 Social History None recorded. Functional Status None recorded. Mental Status None recorded. Family History Nothing Reported. Medical History No medical history recorded. Gynecological HistoryNo gynecological history recorded. Obstetrics History GPAL:G 0 P 0 0 0 0 Past Encounters Encounter ID Performer Location Encounter Start Date Encounter Closed Date Diagnosis/Indication Diagnosis SNOMED-CT Code Diagnosis ICD10 Code [id number] Jonathon Rapp MD [facility] [address] [place] [phone] 02/20/2023 19:14:52 02/21/2023 14:54:24 Skin irritation [id number] L30.9 Health Concerns Section Related Observation LastModified by Organization Detai ls LastModified Time None Recorded Concern Status LastModified by Organization Details LastModified Time None Recorded Advance Directives Directive None Recorded Payers Encounter Date Sequence Insurance Name Policy Number Policy Ulloa Covered Member ID Ulloa Member ID Guarantor Name 02/20/2023 1 [facility] - DOS ON OR AFTER 2022 - DUAL ELIGIBLE - RESIDENTIAL OPTIONS AND ONE CARE (MEDICARE REPLACEMENT/ADV ANTAGE - HMO) Barbara Chopra [id number] Barbara Chopra Notes Date Note Type Note Provider Name and Address Organization Details Recorded Time 02/20/2023 text/html HPI: Hx: GERD anxiety depression,asthma and HTN. .................. .................. .................. .................. .................. .................. .................. ............... [facility] Nursing Assessment: Comments: per requestor-Home evaluation of concern of noted ball below right ear that started aftrer scratching at her face last week. .................. .................. .................. .................. .................. .................. .................. ............... Tobacco Roller Note From Calvin Ch: Dispatched for the female patient experiencing facial swelling. Encountered patient ambulatory, alert and oriented. Patient states she put on a facemask concoction she saw on social media on 02/16/23 and has noticed minor swelling under her left mandible. Patient expresses she has had similar reactions to face creams in the past and denies any pain at rest or during palpation, does express excessive itchiness. Patient denies any somatic complaints and does not exhibit any outward signs of distress. Skin warm, dry and of appropriate color for ethnicity. Head and neck free of trauma; approximately 1inch patch of irritated skin noted; not hot to the touch. -JVD. Breath sounds present, clear and equal bilaterally. Abdomen soft, non-tender and non-distended. Extremities free of trauma and edema. [facility] [place] treatment plan to monitor site of irritation was set in place; patient agreeable and would like to remain at home. Patient advised to reach out for help should she become symptomatic. .................. .................. .................. .................. .................. .................. .................. ............... Disposition: Fulfilled Jonathon Rapp MD [address] [facility],[address], [place], [address], [place] - Apprema 02/20/2023 20:58:34 OBGyn Episode No OBEpisode recorded.
[2024-04-30 11:22] LABS: Alphahydroxymidazolam,GCMS Ur NEGATIVE; Alphahydroxytriazolam, GCMS Ur NEGATIVE; Alprazolam, GCMS Urine NEGATIVE; Flurazepam Metabolite,GCMS Ur NEGATIVE; Lorazepam GCMS Urine NEGATIVE; Nordiazepam, GCMS Urine NEGATIVE; Oxazepam, GCMS Urine NEGATIVE; Temazepam, GCMS Urine NEGATIVE
[2024-04-30 11:23] LABS: Aminoclonazepam, GCMS Urine 483 (H)
== END 2024-04-26 13:03 | disposition home or self-care (01) ==
LOC: HO.HHCLNP 13:02
PROVIDERS: Visit Provider Family Medicine
DX: F41.9 Anxiety disorder, unspecified (principal)
CPT/HCPCS: 80346

== ENCOUNTER 2024-09-13 13:38 | Outpatient (REF) | payer OTHER, SELFPAY ==
--- OUTSIDE RECORDS SUMMARY | 2024-09-13 13:44 | XMS_ITS | Encounter Summary ---
Author Organization [employer] Address [address] [facility] 7t [place] [address] Care Team Providers Care Foreign Service Officer Name Role Phone Beatriz Beverly MD Primary Care Provider [phone] Reason for Visit * Reason Onset Date Comments Med Refill 07/02/2024 Encounter Details Date Type Department Care Team ([facility] Contact Info) Description 07/02/[address] [facility] MEDICINE [address] [place], [place] [phone] Beatriz Beverly MD [address] [place], [place] [phone] Med Refill Social History Tobacco Use Types Packs/Day Years Used Date Smoking Tobacco: Never Passive Smoke Exposure: Never Smokeless Tobacco: Never Alcohol Use Standard Drinks/Week Comments Never 0 (1 standard drink = 0.6 oz pur e alcohol) Alcohol Answer Date Recorded Frequency of Alcohol Consumption Not on file 01/08/2024 Average Number of Drinks Not on file 024 Frequency of Binge Drinking Not on file 12/23 Score 0 01/08/2024 Depression Answer Date Recorded Patient Health Questionnaire-9 Score 5 01/17/2023 Housing Stability Answer Date Recorded What is your housing situation today? I have adalid luciano 01/14/[address] you li ve. Do you have problems with any of the following? Not on file 01/14/2024 Food Insecurity Answer Date Recorded Within the past 12 months, y ou worried that your food would run out before you got money to buy more: Never True 02/06/2023 Within the past 12 months,th e food you bought just didn't last and you didn't have enough money to get more: Never True Transportation Answer Date Recorded In the past 12 months, has l ack of transportation kept you from medical appts, meetings, work or from getting things needed for daily living? No 02/06/2023 Utilities Answer Date Recorded In the past 12 months, has t he electric, gas, oil or water company threatened to shut off services in your home? No 02/06/2023 Depression Answer Date Recorded Patient Health Questionnaire-2 Score 2 01/17/2023 Comments No Sex and Gender Information Value Date Recorded Sex Assigned at Female 02/21/2022 10:15 AM EDT Legal Sex Female 10:15 AM EDT Gender Identity Female 02/21/2022 10:15 AM EDT Sexual Orientation Straight 02/21/2022 10 :15 AM EDT documented as of this encounter Functional Status * Over the last 2 weeks, how often have you been bothered by any of the following problems? Question Answer Date of Assessment Author Feeling nervous, anxious, or on edge 2 07/05/2024 10:13 AM EDT Chetna Carpio RN Not being able to stop or co ntrol worrying 2 07/05/2024 10:13 AM EDT Chetna Carpio RN Worrying too much about diff erent things 2 07/05/2024 10:13 AM RONT Chetna Carpio RN Trouble relaxing 2 07/05/2024 10:13 AM Chetna Kim RN Being so restless that it is hard to sit still 2 07/05/2024 10:13 AM Chetna Kim RN Becoming easily annoyed or irritable 2 07/05/2024 10:13 AM EDT Chetna Carpio RN Feeling afraid as if somethi ng awful might happen 2 07/05/2024 10:13 AM EDChetna Chapman RN JANINE-7 Total Score 14 07/05/2024 10:13 AM EDChetna Chapman RN documented as of this encounter Miscellaneous Notes * Telephone Encounter - Bella Hansen - 07/02/2024 4:47 PM EDT TC from pt requesting medication refill. Medications needing refill : clonazePAM (KlonoPIN) 0.5 MG tablet To be sent to: [facility] [place], [place] - [address] [place] [address] documented in this encounter Plan of Treatment Upcoming Encounters Date Type Department Care Team (Late st Contact Info) Description 12/06/2024 9:15 AM EDT Office Visit [facility] MEDICINE [address] [place] [phone] Elsa Cleveland MD [address] [place] [address] [phone] 12/13/2024 11:00 AM EDT Clinical Support [facility] MEDICINE [address] [place] [address] [phone] Chetna Carpio RN [address] [place], [place] [phone] documented as of this encounter Visit Diagnoses Not on filedocumented in this encounter Additional Health Concerns Assessment Noted Time PHQ-9 Depression Total Score: 5 01/18/20 23 10:56 AM EDT documented as of this encounter Care Teams Foreign Service Officer Relationship Specialty Start Date End Date Beatriz Beverly MD [address] [place] [address] [phone] PCP - General Family Medicine 04/24/18 documented as of this encounter
[2024-09-18 12:48] LABS: Aminoclonazepam, GCMS Urine 305
[2024-09-18 12:49] LABS: Alphahydroxymidazolam,GCMS Ur NEGATIVE; Alphahydroxytriazolam, GCMS Ur NEGATIVE; Alprazolam, GCMS Urine NEGATIVE; Flurazepam Metabolite,GCMS Ur NEGATIVE; Lorazepam GCMS Urine NEGATIVE; Nordiazepam, GCMS Urine NEGATIVE; Oxazepam, GCMS Urine NEGATIVE; Temazepam, GCMS Urine NEGATIVE
== END 2024-09-13 13:39 | disposition home or self-care (01) ==
LOC: HO.HHCLNP 13:38
PROVIDERS: Visit Provider Family Medicine
DX: F41.9 Anxiety disorder, unspecified (principal)
CPT/HCPCS: 80346

== ENCOUNTER 2024-10-29 13:20 | Outpatient (REF) | payer OTHER, SELFPAY ==
--- OUTSIDE RECORDS SUMMARY | 2024-10-29 14:01 | XMS_ITS | Encounter Summary ---
Author Organization [employer] Address [address] [facility] 7t [place] [address] Care Team Providers Care Head Chef Name Role Phone Beatriz Beverly MD Primary Care Provider [phone] Reason for Visit * Reason Onset Date Comments Med Refill 07/02/2024 Encounter Details Date Type Department Care Team ([facility] Contact Info) Description 07/02/2024 Telephone [facility] MEDICINE 230 [place], [place] [phone] Beatriz Beverly MD 230 [place], [place] [phone] Med Refill Social History Tobacco Use Types [...] Miscellaneous Notes * Telephone Encounter - Bella Hnasen - 07/02/2024 4:47 PM EDT TC from pt requesting medication refill. Medications needing refill : clonazePAM (KlonoPIN) 0.5 MG tablet To be sent to: [facility] [place], [place] - [address] [place] [address] documented in this encounter Plan of Treatment Upcoming Encounters Date Type Department Care Team (Late st Contact Info) Description 12/06/2024 9:15 AM EDT Office Visit [facility] [address] [place] [phone] Elsa Cleveland MD [address] [place] [address] [phone] 12/13/2024 11:00 AM EDT Clinical Support [facility] [address] [place] [address] [phone] Chetna Carpio RN [address] [place], [place] [phone] documented as of this encounter Visit Diagnoses Not on filedocumented in this encounter Additional Health Concerns Assessment Noted Time PHQ-9 Depression Total Score: 5 01/18/20 23 10:56 AM EDT documented as of this encounter Care Teams Head Chef Relationship Specialty Start Date End Date Beatriz Beverly MD [address] [place] [address] [phone] PCP - General Family Medicine 04/24/18 documented as of this encounter
--- OUTSIDE RECORDS SUMMARY | 2024-10-29 14:01 | XMS_ITS | Data Portability ---
Author Organization [facility] [employer] [facility], [facility] Address [address] [place] [phone] Assessment No assessment recorded. Plan of Treatment [...] Not available 02/20/2024 5640 RxNorm Not Available [employer] - production 4 03:41:46 8069 Product containin g penicilli n (product) medicatio n Not available Not available Not available 02/20/2024 [id number] 8001 SNOMED Not Available [employer] - production 4 03:41:46 Medications Name Sig [...] in Arterial blood by Pulse oximetry Systolic And Diastolic Provider Name and Address Organization Details Last Updated DateTime 3 81 /min 97.4 [degF] 16 /min 97 % 97 % 162/84 mm[Hg] Not Available [facility] - production 3 19:14:57 Social History None recorded. Functional Status None recorded. Mental Status None recorded. Family History Nothing Reported. Medical History No medical history recorded. Gynecological HistoryNo gynecological history recorded. Obstetrics History GPAL:G 0 P 0 0 0 0 Past Encounters Encounter ID Performer Location Encounter Start Date Encounter Closed Date Diagnosis/Indication Diagnosis SNOMED-CT Code Diagnosis ICD10 Code Diagnosis Note [id number] Jonathon Rapp MD [facility] - [facility] [address] [place] [phone] 02/20/2023 19:14:52 02/21/2023 14:54:24 Skin irritation 764361550 L30.9 She used a face mask that she found on [employer] and now notes that she has a slightly irritated area behind her jaw. No signs of anaphylaxi s or systemic reaction. Advised conservati ve management for now and PCP follow-up if not improving. Health Concerns Section Related Observation LastModified by Organization Detai ls LastModified Time None Recorded Concern Status LastModified by Organization Details LastModified Time None Recorded Advance Directives Directive None Recorded Payers Insurance Date Sequence Insurance Name Policy Number Policy Ulloa Covered Member ID Ulloa Member ID Guarantor Name 06/18/2023 1 [facility] - DOS ON OR AFTER 2022 - DUAL ELIGIBLE - [employer] OPTIONS AND ONE CARE (MEDICARE REPLACEMENT/ADV ANTAGE - HMO) Brabara Chopra [id number] Barbara Chopra Notes Date Note Type Note [...] .................. .................. .................. .................. .................. .................. ............... Chicken Fancier Note From Calvin Ch: Dispatched for the [...] non-distended. Extremities free of trauma and edema. [facility] [place] [place] contacted, treatment plan to monitor site of irritation was set in place; patient agreeable and would like to remain at home. Patient advised to reach out for help should she become symptomatic. .................. .................. .................. .................. .................. .................. .................. ............... Disposition: Fulfilled Jonathon Rapp MD [address] [place] [address],[address], [place], [address], [place] 02/20/2023 20:58:34 OBGyn Episode No OBEpisode recorded.
--- OUTSIDE RECORDS SUMMARY | 2024-10-29 14:02 | XMS_ITS | Patient Health Record ---
Author Organization [employer] Address [address] [place] [address] Care Team Providers Care Pharmacy Resource Tech Name Role Phone Rush SR, Beatriz Primary Care Provider Eloy Gilbert [phone] Allergies Allergen (clinical drug ingredient) Drug/Non Drug Allergy documented on EMR Reaction Allergy Type Onset Date Status Motrin Unknown Drug Allergy Active ibuprofen Ibuprofen Unknown Drug Allergy Active acetaminophen / aspirin / caffeine Excedrin Migraine Unknown Drug Allergy Active aspirin Aspirin Unknown Drug Allergy Active ibuprofen Advil Unknown Drug Allergy Active Penicillin Unknown Drug Allergy Active Mylanta Unknown Drug Allergy Active Reason For Referral No Information Medications Medication SIG (Take, Route, Frequency, Duration) Notes [...] 1 tablet Orally Once a day Active Immunizations Vaccine Route Administration Date Status Comme nts Influenza Unknown 02/14/2023 Administered Problems Problem Type SNOMED Code ICD Code Onset Dates Problem Status W/U Status Risk Notes Problem 514191208 Encounter for screening for malignant neoplasm of colon (Z12.11) Active confirmed Problem 584342754 History of adenomatous polyp of colon (Z86.010) Active confirmed Problem Personal history of colonic polyps (Z86.010) Active confirmed Problem Diverticular disease of colon (968904462) Diverticulosis of large intestine without perforation or abscess without bleeding (K57.30) Active confirmed Problem 806299702 Gastroesophageal reflux disease without esophagitis (K21.9) Active confirmed Encounters Encounter Location Date Provider Diagnosis [facility] Outpatient [address] [place] [id number] 01/01/2024 Eloy Gomez Colon cancer scree vickie Z12.11 ; Personal history of colonic polyps Z86.010 ; Diverticulosis of large intestine without perforation or abscess without bleeding K57.30 and Other hemorrhoids K64.8 Assessments Encounter Date Diagnosis (ICD Code) Assessment Notes Treatment Notes Treatment Clinical Notes Section Notes 01/01/2024 Colon cancer screening (ICD-10 - Z12.11) 01/01/2024 Personal history of colonic polyps (ICD-10 - Z86.010) 01/01/2024 Diverticulosis of large intestine without perforation or abscess without bleeding (ICD-10 - K57.30) 01/01/2024 Other hemorrhoids (ICD-10 - K64.8) Plan Of Treatment Future Test Test Name Order Date UPPER GI ENDOSCOPY 11/08/2013 COLONOSCOPY 02/22/2017 COLONOSCOPY 09/20/2023 Insurance Providers Payer Name Payer Address Payer Phone Subscriber Number Group Number Insured Name Patient Relationship to Insured Coverage Start Date Coverage End Date [facility] [address] [place] [address] [id number] THERESA SABILLON Self - patient is the insured Medical (General) History Medical History History ICD Code Hypertension Denies [place],DM,CVA,Lung disease,renal dise ase Anxiety Hyperlipidemia Reported gastritis--EGD in [place] Colonoscopy in 09/2011-1 small tubular ad enoma removed GERD-EGD in 04/2014-small HH--no Stanton' s, no esophagitis, no H.pylori 05/2017 Screening colonoscopy with a smal l tubular adenoma removed Surgical History Surgery Date(Month/Year) shoulder surgery BTL
--- OUTSIDE RECORDS SUMMARY | 2024-10-29 14:02 | XMS_ITS | Clinical Summary ---
Author Organization [employer] [facility] it Address [address] [place] [address] Care Team Providers Care Hot Man Name Role Phone Unavailable Primary Care Provider Unavailabl e Social History Tobacco Use Types Packs/Day Years Used Date Smoking Tobacco: Never Assessed Comments Unknown Sex and Gender Information Value Date Recorded Sex Assigned at Not on file Legal Sex Female 8:57 PM EST Gender Identity Not on file Sexual Orientation Not on file Plan of Treatment Health Maintenance Due Date Last Done Comments Breast Cancer Screening 1955 DTaP,Tdap,and Td Vaccines (1 - Tdap) 1974 Pneumococcal Vaccine: 50+ Ye ars (1 of 1 - PCV) 2005 Zoster Vaccines (1 of 2) 2005 Colorectal Cancer Screening: Colonoscopy 05/19/2023 Depression Screening 05/19/2023 Falls Risk Assessment 05/19/2023 Hepatitis C Screening 05/19/2023 Osteoporosis Screening (Bone Density Screening) 05/19/2023 Social Influencers of Health Screening 05/19/2023 COVID-19 Vaccine ( - 2023-2 5 season) 2023 Influenza Vaccine (#1) 2024 RSV Immunization Adult Patie nts (1 - 1-dose 75+ series) 2030 HIB Vaccines Aged Out No longer eligi ble based on patient's age to complete this topic HPV Vaccines Aged Out No longer eligi ble based on patient's age to complete this topic Hepatitis A Vaccines Aged Out No long er eligible based on patient's age to complete this topic Hepatitis B Vaccines Aged Out No long er eligible based on patient's age to complete this topic IPV Vaccines Aged Out No longer eligi ble based on patient's age to complete this topic MMR Vaccines Aged Out No longer eligi ble based on patient's age to complete this topic Meningococcal ACWY Vaccine Aged Out N o longer eligible based on patient's age to complete this topic Meningococcal B Vaccine Aged Out No l onger eligible based on patient's age to complete this topic RSV Immunization Patients Un lacy 20 months Aged Out No longer eligible b ased on patient's age to complete this topic Varicella Vaccines Aged Out No longer eligible based on patient's age to complete this topic
== END 2024-10-29 13:21 | disposition home or self-care (01) ==
LOC: HO.MAMMO 13:20
PROVIDERS: PCP Family Medicine; Visit Provider Family Medicine
DX: Z12.31 Encounter for screening mammogram for malignant neoplasm of breast (principal)
CPT/HCPCS: 77063; 77067

== ENCOUNTER → 2024-10-29 13:45 | Outpatient (BNV) | payer OTHER, SELFPAY | PROVIDERS: PCP Family Medicine; Visit Provider Internal Medicine | DX: Z12.31 Encounter for screening mammogram for malignant neoplasm of breast (principal) | CPT/HCPCS: 77063; 77067 ==

== ENCOUNTER 2024-12-10 14:27 | Outpatient (REF) | payer OTHER, SELFPAY ==
--- NOTE | ~2024-12-10 | XR_ITS ---
EXAMINATION: XR SHOULDER, LEFT CLINICAL INFORMATION: left shoulder pain, limited internal rotation. COMPARISON: None available. TECHNIQUE: AP external rotation, Grashey, scapular Y, and axillary views of the left shoulder. FINDINGS: On one of the AP views, there is subtle elevation of distal clavicle relative to acromion. There is no dislocation. There are no other abnormalities. XR/XR shoulder LT min 2V IMPRESSION: Possible type I or type II AC joint separation. Electronically signed by: Khris Colvin MD 12/10/2024 04:25 PM EDT
--- OUTSIDE RECORDS SUMMARY | 2024-12-10 15:48 | XMS_ITS | Patient Health Record ---
Author Organization [facility] Address [address] [place] [address] Care Team Providers Care Windows Technical Specialist Name Role Phone Rush SR, Beatriz Primary Care Provider Eloy Gilbert [phone] Allergies Allergen (clinical drug ingredient) Drug/Non Drug Allergy documented on EMR Reaction Allergy Type Onset Date Status ibuprofen Ibuprofen Unknown Drug Allergy Active acetaminophen / aspirin / caffeine Excedrin Migraine Unknown Drug Allergy Active aspirin Aspirin Unknown Drug Allergy Active ibuprofen Advil Unknown Drug Allergy Active Penicillin Unknown Drug Allergy Active Mylanta Unknown Drug Allergy Active Motrin Unknown Drug Allergy Active Reason For Referral [...] Problem Status W/U Status Risk Notes Problem 723424844 Encounter for screening for malignant neoplasm of colon (Z12.11) Active confirmed Problem 734405671 History of adenomatous polyp of colon (Z86.010) Active confirmed Problem History of polyp of colon (situation) (651517086) Personal history of colonic polyps (Z86.010) Active confirmed Problem Diverticular disease of colon (964356436) Diverticulosis of large intestine without perforation or abscess without bleeding (K57.30) Active confirmed Problem 364199144 Gastroesophageal reflux disease without esophagitis (K21.9) Active confirmed Encounters Encounter Location Date Provider Diagnosis [facility] Outpatient [address] [place] [phone] 01/01/2024 Eloy Gomez Colon cancer scree vickie [...] Insured Coverage Start Date Coverage End Date [facility] [address] Attn Claims [place] [id number] THERESA SABILLON Self - patient is the insured Medical (General) History Medical History History ICD Code Hypertension Denies [place],DM,CVA,Lung disease,renal dise ase Anxiety Hyperlipidemia Reported gastritis--EGD in [place] Colonoscopy in 09/2011-1 small tubular ad enoma removed GERD-EGD in 04/2014-small HH--no Stanton' s, no esophagitis, no H.pylori 05/2017 Screening colonoscopy with a smal l tubular adenoma removed Surgical History Surgery Date(Month/Year) shoulder surgery BTL
--- OUTSIDE RECORDS SUMMARY | 2024-12-10 15:48 | XMS_ITS | Encounter Summary ---
Author Organization [employer] Address [address] [facility] 7t [place] [address] Care Team Providers Care Box Stacker Name Role Phone Beatriz Beverly MD Primary Care Provider [phone] Reason for Visit * Reason Onset Date Comments Med Refill 07/02/2024 Encounter Details Date Type Department Care Team ([facility] Contact Info) Description 07/02/2024 Telephone [facility] MEDICINE [address] [place], [place] [phone] Beatriz Beverly MD [address] [place], [place] [phone] Med Refill Social History Tobacco Use Types [...] sent to: [facility] [place], [place] - [address] [place] [address] documented in this encounter Plan of Treatment Upcoming Encounters Date Type Department Care Team (Late st Contact Info) Description 12/13/2024 11:00 AM EDT Clinical Support [facility] MEDICINE [address] [place] [address] Chetna Carpio, LISA [address] [place] [address] documented as of this encounter Visit Diagnoses Not on filedocumented in this encounter Additional Health Concerns Assessment Noted Time PHQ-9 Depression Total Score: 5 01/18/20 23 10:56 AM EDT documented as of this encounter Care Teams Box Stacker Relationship Specialty Start Date End Date Beatriz Beverly MD [address] [place] [address] PCP - General Family Medicine 04/24/18 documented as of this encounter
--- OUTSIDE RECORDS SUMMARY | 2024-12-10 15:48 | XMS_ITS | Clinical Summary ---
Author Organization [employer] [facility] it Address [address] [place] [address] Care Team Providers Care Cutter Finisher Name Role Phone Unavailable Primary Care Provider [...] 2) 2005 Colorectal Cancer Screening: Colonoscopy 05/19/2023 Falls Risk Assessment 05/19/2023 Hepatitis C Screening 05/19/2023 Osteoporosis Screening (Bone Density Screening) 05/19/2023 Social Influencers of Health Screening 05/19/2023 COVID-19 Vaccine (1 - 2023-2 5 season) 2023 Depression Screening 04/24/2024 Influenza Vaccine (#1) 2024 RSV Immunization Adult [...]
[2024-12-10 16:36] LABS: Hemoglobin A1C 167.0817 umol/L; Total Hemoglobin (HGBA1C) 3868.5218 umol/L
[2024-12-10 16:58] LABS: Alanine Aminotransferase 32 U/L (0-31); Albumin Level 4.4 g/dL (3.5-5.0); Alkaline Phosphatase 63 U/L (39-117); Anion Gap 13 (12-20); Aspartate Amino Transferase 36 U/L (5-31); Blood Urea Nitrogen 20 mg/dL (9-16); Calcium 10.5 mg/dL (8.4-10.2); Carbon Dioxide 28 mmol/L (22-29); Chloride 102 mmol/L (96-108); Cholesterol 184 mg/dL (<200); Estimated Glomerular Filt Rate > 60; HDL Cholesterol 56 mg/dL (>40); Potassium 3.8 mmol/L (3.3-5.1); Sodium 139 mmol/L (135-145); Total Protein 7.7 g/dL (6.5-8.0); Triglycerides 81 mg/dL (<150)
[2024-12-10 18:52] LABS: Reflex LDLD? No
== END 2024-12-10 14:28 | disposition home or self-care (01) ==
LOC: HO.HHCL 14:27
PROVIDERS: PCP Family Medicine; Visit Provider Family Medicine
DX: I10 Essential (primary) hypertension (principal); M25.512 Pain in left shoulder; R73.01 Impaired fasting glucose; G89.29 Other chronic pain; E78.5 Hyperlipidemia, unspecified
CPT/HCPCS: 36415; 73030; 80053; 80061; 83036

== ENCOUNTER → 2024-12-10 14:50 | Outpatient (BNV) | payer OTHER, SELFPAY | PROVIDERS: PCP Family Medicine; Visit Provider Radiology Diagnostic Radiology | DX: M25.512 Pain in left shoulder (principal) | CPT/HCPCS: 73030 ==

== ENCOUNTER 2024-12-13 17:42 | Outpatient (REF) | payer OTHER, SELFPAY ==
--- OUTSIDE RECORDS SUMMARY | 2024-12-13 17:44 | XMS_ITS | Encounter Summary ---
Author Organization [employer] Address [address] [facility] 7t [place] [address] Care Team Providers Care Aerodynamics Engineer Name Role Phone Beatriz Beverly MD Primary Care Provider [phone] Reason for Visit * Reason Onset Date Comments Med Refill 07/02/2024 Encounter Details Date Type Department Care Team ([facility] Contact Info) Description 07/02/2024 Telephone [facility] MEDICINE 230 [place], [place] [phone] Beatriz Beverly MD 230 [place], [place] [phone] Med Refill Social History Tobacco Use Types [...] sent to: [facility] [place], [place] - [address] [place] [address] documented in this encounter Plan of Treatment Upcoming Encounters Date Type Department Care Team ([facility] st Contact Info) Description 03/10/2025 11:00 AM EST Telemedicine [facility] [address] [place] [address] Chetna Carpio, RN [address] [place] [address] documented as of this encounter Visit Diagnoses Not on filedocumented in this encounter Additional Health Concerns Assessment Noted Time PHQ-9 Depression Total Score: 5 01/18/20 23 10:56 AM EDT documented as of this encounter Care Teams Aerodynamics Engineer Relationship Specialty Start Date End Date Beatriz Beverly MD [address] [place] [address] PCP - General Family Medicine 04/24/18 documented as of this encounter
--- OUTSIDE RECORDS SUMMARY | 2024-12-13 17:44 | XMS_ITS | Clinical Summary ---
Author Organization [employer] [facility] it Address [address] [place] [address] Care Team Providers Care Vacuum Technician Name Role Phone Unavailable Primary Care Provider [...]
--- OUTSIDE RECORDS SUMMARY | 2024-12-13 17:44 | XMS_ITS | Patient Health Record ---
Author Organization [facility] Address [address] [place] [address] Care Team Providers Care Lubrication Equipment Servicer Name Role Phone Rush SR, Beatriz Primary Care Provider Eloy Gilbert [phone] Allergies Allergen (clinical drug ingredient) Drug/Non Drug [...] Problem Status W/U Status Risk Notes Problem 013547633 Encounter for screening for malignant neoplasm of colon (Z12.11) Active confirmed Problem 029489310 History of adenomatous polyp of colon (Z86.010) Active confirmed Problem Personal history of colonic polyps (Z86.010) Active confirmed Problem Diverticular disease of colon (354235853) Diverticulosis of large intestine without perforation or abscess without bleeding (K57.30) Active confirmed Problem 424481607 Gastroesophageal reflux disease without esophagitis (K21.9) Active confirmed Encounters Encounter Location Date Provider Diagnosis [facility] Outpatient [address] [place] [phone] 01/01/2024 Eloy Gomez Colon cancer scree vickie [...] Insured Coverage Start Date Coverage End Date [facility] [address] [place] [address] [id number] THERESA SABILLON Self - patient is the insured Medical (General) History Medical History History ICD Code Hypertension Denies [place],DM,CVA,Lung disease,renal dise ase Anxiety Hyperlipidemia Reported gastritis--EGD in [place] Colonoscopy in 09/2011-1 small tubular ad enoma removed GERD-EGD in 04/2014-small HH--no Stanton' s, no esophagitis, no H.pylori 05/2017 Screening colonoscopy with a smal l tubular adenoma removed Surgical History Surgery Date(Month/Year) shoulder surgery BTL
[2024-12-16 09:07] LABS: Aminoclonazepam, GCMS Urine 290
[2024-12-16 09:08] LABS: Alprazolam, GCMS Urine NEGATIVE; Lorazepam GCMS Urine NEGATIVE; Nordiazepam, GCMS Urine NEGATIVE; Oxazepam, GCMS Urine NEGATIVE
[2024-12-16 09:09] LABS: Alphahydroxymidazolam,GCMS Ur NEGATIVE; Alphahydroxytriazolam, GCMS Ur NEGATIVE; Flurazepam Metabolite,GCMS Ur NEGATIVE; Temazepam, GCMS Urine NEGATIVE
== END 2024-12-13 17:43 | disposition home or self-care (01) ==
LOC: HO.HHCLNP 17:42
PROVIDERS: Visit Provider Family Medicine
DX: F41.9 Anxiety disorder, unspecified (principal)
CPT/HCPCS: 80346